=== PATIENT | female | born 1975 | race Caucasian/White ===

== ENCOUNTER 2017-09-08 10:57 | Emergency (ER) | payer OTHER ==
[~2017-09-08] VITALS: Ht 162.6 cm; Wt 50.8 kg
[2017-09-08 11:00] VITALS: BP 124/71
--- NOTE | 2017-09-08 11:40 | NUR ---
WAITING FOR ACI
== END 2017-09-08 12:07 | disposition home or self-care (01) ==
LOC: ER 10:58
DX: T78.3XXA Angioneurotic edema, initial encounter (principal); K13.0 Diseases of lips; Z85.3 Personal history of malignant neoplasm of breast; Y92.89 Other specified places as the place of occurrence of the external cause
CPT/HCPCS: 99282; A4606; Z7610